=== PATIENT | male | born 1970 | race American Indian/Alaskan Native ===

== ENCOUNTER 2019-12-25 07:23 | Emergency (ER) | payer MEDICAID ==
[2019-12-25 07:35] VITALS: BP 108/76
--- NOTE | 2019-12-25 08:04 | Emergency Department Report ---
Chief Complaint: Urogenital-Male Stated Complaint: STD CHECK Time Seen by Provider: 12/25/19 08:03 - HPI History of Present Illness: slept with woman last week and now concerned he has sti "discomfort" no discharge - ROS Review of Systems: no abd pain no nvd no fever or chills - Exam Vital Signs: Vital Signs 12/25/19 07:35 Temperature 98 F Pulse Rate 68 Respiratory 16 Rate Blood Pressure 108/76 [Right] O2 Sat by Pulse 100 Oximetry Physical Exam: a/o nad vss s1s2 abd snt MSE screening note: Focused history and physical exam performed. Due to findings the following was ordered: Patient discussed with doctor:: LEONEL RODNEY ED Disposition for MSE Condition: Stable Referrals: PRIMARY CARE, [Primary Care Provider] - 3-5 Days
[2019-12-25] MEDS ORDERED: LIDOCAINE-MPF (1%) 10 MG/1 ML VIAL 5 ML INFILTRATI ONE (08:08)
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
[2019-12-25 08:43] LABS: Bilirubin,Urine NEG (Negative); Blood,Urine NEG (Negative); Color,Urine Yellow (Yellow); Mucus,Urine FEW /HPF; Protein,Urine <15 mg/dL mg/dL (Negative); Urobilinogen,Urine < 2.0 mg/dL (<2.0)
== END 2019-12-25 08:24 | disposition home or self-care (01) ==
LOC: ED 07:23
DX: A64 Unspecified sexually transmitted disease (principal); Z79.2 Long term (current) use of antibiotics; Z98.890 Other specified postprocedural states
CPT/HCPCS: 81001; 87591; 96372; 99283; J0696

== ENCOUNTER 2020-04-15 05:52 | Emergency (ER) | payer MEDICAID ==
[2020-04-15 06:05] VITALS: BP 116/75
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
[2020-04-15 08:02] LABS: Bacteria,Urine 1+ /HPF (Negative); Bilirubin,Urine NEG (Negative); Blood,Urine MOD (Negative); Color,Urine Yellow (Yellow); Mucus,Urine 3+ /HPF; Urobilinogen,Urine < 2.0 mg/dL (<2.0)
== END 2020-04-15 08:23 | disposition home or self-care (01) ==
LOC: ED 05:52
DX: H61.23 Impacted cerumen, bilateral (principal); N39.0 Urinary tract infection, site not specified; F12.90 Cannabis use, unspecified, uncomplicated; Z79.899 Other long term (current) drug therapy; Z87.891 Personal history of nicotine dependence
CPT/HCPCS: 81001; 87086; 99283

== ENCOUNTER 2021-12-03 23:57 | Emergency (ER) | payer MEDICARE ==
[2021-12-04 01:30] LABS: Basophils % (Auto) 0.7 % (0.0-1.8); Eosinophils # (Auto) 0.3 K/mm3 (0.0-0.4); Hemoglobin 13.7 gm/dl (11.8-15.2); Lymphocytes # (Auto) 2.5 K/mm3 (1.2-5.4); Lymphocytes % (Auto) 39.5 % (13.4-35.0); Mean Corpuscular HGB Conc 33 % (32-34); Mean Corpuscular Volume 83 fl (84-94); Monocytes # (Auto) 0.4 K/mm3 (0.0-0.8); Monocytes % (Auto) 5.6 % (0.0-7.3); Platelet Count 175 K/mm3 (140-440); Red Blood Count 5.08 M/mm3 (3.65-5.03); Red Cell Distribution Width 14.9 % (13.2-15.2)
[2021-12-04 01:53] LABS: Alanine Aminotransferase 15 units/L (7-56); Albumin 4.2 g/dL (3.9-5); BUN/Creatinine Ratio 16; Blood Urea Nitrogen 16 mg/dL (9-20); Hemolysis Index 4
[2021-12-04 04:40] LABS: Bacteria,Urine 3+ /HPF (Negative); Bilirubin,Urine NEG (Negative); Blood,Urine NEG (Negative); Color,Urine Yellow (Yellow); Mucus,Urine FEW /HPF; Protein,Urine <15 mg/dL mg/dL (Negative); RBC,Urine < 1.0 /HPF (0.0-6.0); Urobilinogen,Urine < 2.0 mg/dL (<2.0)
[2021-12-04] MEDS ORDERED: ACETAMINOPHEN 325 MG TAB PO STA (06:59)
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
[2021-12-04 07:22] VITALS: BP 114/60
== END 2021-12-04 07:21 | disposition home or self-care (01) ==
LOC: ED 23:57
DX: R82.71 Bacteriuria (principal); R10.30 Lower abdominal pain, unspecified; Z87.891 Personal history of nicotine dependence; F12.90 Cannabis use, unspecified, uncomplicated
CPT/HCPCS: 36415; 80053; 81001; 85025; 99283